=== PATIENT | male | born 1960 | race African-American/Black ===

== ENCOUNTER 2023-03-29 23:44 | Emergency (ER) | payer MEDICAID ==
[~2023-03-29] VITALS: Ht 170.2 cm; Wt 70.0 kg
[~2023-03-29 23:44] MED LIST: ASPI-1160 PO; ATOR20TA65 PO; ATROV PO; AZIT500T8 MT; CARV3.1242 PO; EMPA10TA PO; FAMO20TA8 PO; FURO40TA5 PO; GABA-534 PO; SACU1TAB PO; TIOT4MIS5 IH
[2023-03-29 23:46] VITALS: O2SAT 94
[2023-03-30 00:39] LABS: BASOPHILS % 0.7 % (0.0-2.0); EOSINOPHILS % 4.5 % (0.0-5.0); HEMATOCRIT. 32.8 % (42.0-52.0); HEMOGLOBIN. 10.5 g/dL (14.0-18.0); MEAN CORPUSCULAR HEMOGLOBIN 28.3 pg (28.0-32.0); MEAN CORPUSCULAR VOLUME 88.3 fL (80.0-94.0); MONOCYTES % 13.7 % (2.0-8.0); NEUTROPHILS % 51.1 % (40.0-76.0); PLATELET 137 x1000/uL (130-400); RED BLOOD CELL COUNT 3.72 mill/uL (4.7-6.1); RED CELL DISTRIBUTION WIDTH 20.2 % (11.6-14.6); WHITE BLOOD COUNT 3.8 x1000/uL (4.5-11.0)
[2023-03-30 00:43] LABS: BG BASE EXCESS 1.4 mmol/L (-2.0-2.0); BG CARBOXYHEMOGLOBIN 0.7 % (0.5-1.5); BG DEOXYHEMOGLOBIN 8.3 % (0.0-5.0); BG FRACTION INSPIRED OXYGEN 28; BG HCO3 ACT 24.2 mmol/L (22.0-26.0); BG METHEMOGLOBIN 0.1 % (0.0-1.5); BG OXYGEN SATURATION 91.6 % (92.0-98.5); BG OXYHEMOGLOBIN 90.9 % (94.0-97.0); BG PCO2 32.6 mmHg (35.0-45.0); BG PH 7.489 (7.350-7.450); BG PO2 63.9 mmHg (75.0-100.0); BG SAMPLE SITE RIGHT RADIAL; BG TOTAL HEMOGLOBIN 12.1 g/dL (12.0-18.0); BG VENT MODE NASAL CANNULA
[2023-03-30 00:48] LABS: INR 1.2; PROTHROMBIN TIME 13.2 sec (9.6-11.0)
[2023-03-30 00:59] LABS: ALANINE AMINOTRANSFERASE 17 IU/L (10-49); ALBUMIN 3.8 g/dL (3.2-4.8); ASPARTATE AMINOTRANSFERASE 26 IU/L (<34); BILIRUBIN TOTAL 1.9 mg/dL (0.1-1.0); CALCIUM 8.9 mg/dL (8.7-10.4); CARBON DIOXIDE 29 mEq/L (21-32); CHLORIDE 105 mEq/L (98-107); CREATININE 1.3 mg/dL (0.6-1.3); GLUCOSE 99 mg/dL (70-105); POTASSIUM 3.9 mEq/L (3.5-5.1); PROTEIN TOTAL 7.3 g/dL (6.0-8.3); SODIUM 140 mEq/L (136-145); TROPONIN I HIGH SENSITIVITY 39 ng/L (3.0-53); UREA NITROGEN BLOOD 17 mg/dL (9-23)
[2023-03-30] MEDS ORDERED: FUROSEMIDE 40MG/4ML VIAL IVP ONE (01:45)
[2023-03-30] MEDS ORDERED: FAMOTIDINE 20MG/2ML VIAL IV ONE (02:15)
[2023-03-30] MEDS ORDERED: MAGNESIUM/ALUMINUM HYDROXIDE/SIMETHICONE 30ML UDC PO ONE (06:45)
[2023-03-30 08:03] VITALS: BP 154/96; PULSE 86; RESP 20; TEMP 99
== END 2023-03-30 08:13 | disposition short-term general hospital (02) ==
LOC: ER 23:44
DX: I11.0 Hypertensive heart disease with heart failure (principal); I50.9 Heart failure, unspecified; J44.9 Chronic obstructive pulmonary disease, unspecified; E11.9 Type 2 diabetes mellitus without complications; Z87.891 Personal history of nicotine dependence; Z20.822 Contact with and (suspected) exposure to COVID-19
CPT/HCPCS: 99291; 80053; 83880; 85025; 85610; 84484; 87804 ×2; 36415; 71045; 82805; 82375; 93005; 87426; 36600; J3490; J1940; C9803; Z7610 ×3

== ENCOUNTER 2023-05-21 19:28 | Emergency (ER) | payer MEDICAID ==
[~2023-05-21] VITALS: Ht 172.7 cm; Wt 70.0 kg
[2023-05-21] MEDS ORDERED: IPRATROPIUM BROMIDE (0.02%) 0.5MG/2.5ML NEB HHN STA (19:35)
[2023-05-21] MEDS ORDERED: ALBUTEROL (0.083%) 2.5MG/3ML NEB HHN STA (19:35)
[2023-05-21] MEDS ORDERED: METHYLPREDNISOLONE SOD SUCC 125MG/2ML (ACT-O-VIAL) IV STA (19:35)
[2023-05-21 19:50] VITALS: PULSE 90; RESP 16; O2SAT 95
[2023-05-21 20:17] LABS: BASOPHILS % 0.8 % (0.0-2.0); EOSINOPHILS % 2.8 % (0.0-5.0); HEMATOCRIT. 33.3 % (42.0-52.0); HEMOGLOBIN. 10.4 g/dL (14.0-18.0); LYMPHOCYTES % 17.4 % (20.0-50.0); MEAN CORPUSCULAR HEMOGLOBIN 26.5 pg (28.0-32.0); MEAN CORPUSCULAR HGB CONC 31.2 g/dL (31.0-37.0); MEAN CORPUSCULAR VOLUME 84.9 fL (80.0-94.0); MEAN PLATELET VOLUME 7.8 fl (7.4-10.4); MONOCYTES % 11.9 % (2.0-8.0); NEUTROPHILS % 67.1 % (40.0-76.0); PLATELET 176 x1000/uL (130-400); RED BLOOD CELL COUNT 3.92 mill/uL (4.7-6.1); RED CELL DISTRIBUTION WIDTH 20.2 % (11.6-14.6); WHITE BLOOD COUNT 4.6 x1000/uL (4.5-11.0)
[2023-05-21 20:23] LABS: INR 1.4; PROTHROMBIN TIME 15.1 sec (9.6-11.0)
[2023-05-21 20:26] LABS: ALANINE AMINOTRANSFERASE 12 IU/L (10-49); ALBUMIN 3.6 g/dL (3.2-4.8); ASPARTATE AMINOTRANSFERASE 22 IU/L (<34); BILIRUBIN TOTAL 1.8 mg/dL (0.1-1.0); CALCIUM 8.1 mg/dL (8.7-10.4); CARBON DIOXIDE 24 mEq/L (21-32); CHLORIDE 104 mEq/L (98-107); CREATININE 1.4 mg/dL (0.6-1.3); GLUCOSE 154 mg/dL (70-105); POTASSIUM 3.4 mEq/L (3.5-5.1); PROTEIN TOTAL 7.9 g/dL (6.0-8.3); SODIUM 135 mEq/L (136-145); TROPONIN I HIGH SENSITIVITY 43 ng/L (3.0-53); UREA NITROGEN BLOOD 24 mg/dL (9-23)
[2023-05-22 00:49] VITALS: BP 99/72; PULSE 89; RESP 12
== END 2023-05-22 00:43 | disposition short-term general hospital (02) ==
LOC: ER 19:28
DX: J44.9 Chronic obstructive pulmonary disease, unspecified (principal); I11.0 Hypertensive heart disease with heart failure; I50.9 Heart failure, unspecified; E11.9 Type 2 diabetes mellitus without complications; Z79.899 Other long term (current) drug therapy
CPT/HCPCS: 80053; 83880; 85025; 85610; 84484; 36415; 71045; 93005; 94644; 96374; 99291; J2930; Z7610 ×5

== ENCOUNTER 2023-06-09 23:22 | Emergency (ER) | payer MEDICAID ==
[~2023-06-09] VITALS: Ht 188 cm; Wt 100.0 kg
[2023-06-09 23:24] VITALS: O2SAT 100
[2023-06-09] MEDS ORDERED: IPRATROPIUM BROMIDE (0.02%) 0.5MG/2.5ML NEB HHN STA (23:40)
[2023-06-09] MEDS ORDERED: METHYLPREDNISOLONE SOD SUCC 125MG/2ML (ACT-O-VIAL) IV STA (23:40)
[2023-06-09] MEDS ORDERED: NITROGLYCERIN OINT 1GM/INCH UDPKT TD ONE (23:45)
[2023-06-09] MEDS ORDERED: FUROSEMIDE 40MG/4ML VIAL IV ONE (23:45)
[2023-06-09] MEDS ORDERED: MAGNESIUM 2 G PREMIX 50 ML IV ONE (23:45)
[2023-06-10] MEDS ORDERED: ALBUTEROL (0.083%) 2.5MG/3ML NEB HHN SCH
[2023-06-10 00:33] LABS: BG BASE EXCESS -0.7 mmol/L (-2.0-2.0); BG CARBOXYHEMOGLOBIN 1.8 % (0.5-1.5); BG DEOXYHEMOGLOBIN 0.9 % (0.0-5.0); BG FRACTION INSPIRED OXYGEN 100; BG HCO3 ACT 22.8 mmol/L (22.0-26.0); BG METHEMOGLOBIN 0.4 % (0.0-1.5); BG OXYGEN SATURATION 99.1 % (92.0-98.5); BG OXYHEMOGLOBIN 96.9 % (94.0-97.0); BG PCO2 33.8 mmHg (35.0-45.0); BG PH 7.447 (7.350-7.450); BG PO2 144.8 mmHg (75.0-100.0); BG SAMPLE SITE RIGHT RADIAL; BG TOTAL HEMOGLOBIN 11.4 g/dL (12.0-18.0); BG VENT MODE MASK - NRB
[2023-06-10 02:40] LABS: BASOPHILS % 0.4 % (0.0-2.0); EOSINOPHILS % 3.3 % (0.0-5.0); HEMATOCRIT. 34.8 % (42.0-52.0); LYMPHOCYTES % 20.8 % (20.0-50.0); MEAN CORPUSCULAR HEMOGLOBIN 26.1 pg (28.0-32.0); MEAN CORPUSCULAR HGB CONC 31.8 g/dL (31.0-37.0); MEAN CORPUSCULAR VOLUME 82.2 fL (80.0-94.0); MEAN PLATELET VOLUME 8.1 fl (7.4-10.4); NEUTROPHILS % 61.5 % (40.0-76.0); PLATELET 168 x1000/uL (130-400); RED BLOOD CELL COUNT 4.23 mill/uL (4.7-6.1); RED CELL DISTRIBUTION WIDTH 20.8 % (11.6-14.6); WHITE BLOOD COUNT 4.2 x1000/uL (4.5-11.0)
[2023-06-10 02:49] LABS: ALANINE AMINOTRANSFERASE 9 IU/L (10-49); ALBUMIN 3.8 g/dL (3.2-4.8); ASPARTATE AMINOTRANSFERASE 17 IU/L (<34); BILIRUBIN TOTAL 1.5 mg/dL (0.1-1.0); CALCIUM 8.3 mg/dL (8.7-10.4); CARBON DIOXIDE 27 mEq/L (21-32); CHLORIDE 110 mEq/L (98-107); CREATININE 1.3 mg/dL (0.6-1.3); GLUCOSE 92 mg/dL (70-105); POTASSIUM 3.7 mEq/L (3.5-5.1); PROTEIN TOTAL 7.3 g/dL (6.0-8.3); SODIUM 145 mEq/L (136-145); TROPONIN I HIGH SENSITIVITY 48 ng/L (3.0-53); UREA NITROGEN BLOOD 25 mg/dL (9-23)
[2023-06-10] MEDS: CEFTRIAXONE 1GM PREMIX 50 ML IV ONE (03:00)
[2023-06-10] MEDS: FUROSEMIDE 40MG/4ML VIAL IV NR (04:30)
[2023-06-10] MEDS: MAGNESIUM 2 G PREMIX 50 ML IV NR (04:45)
[2023-06-10] MEDS: NITROGLYCERIN OINT 1GM/INCH UDPKT TD NR (05:00)
[2023-06-10] MEDS: METHYLPREDNISOLONE SOD SUCC 125MG/2ML (ACT-O-VIAL) IV NR (05:00)
[2023-06-10 05:16] LABS: TROPONIN I HIGH SENSITIVITY 41 ng/L (3.0-53)
[2023-06-10] MEDS: AZITHROMYCIN 500MG/250ML 250 ML IV ONE (05:40)
[2023-06-10] MEDS ORDERED: ACETAMINOPHEN 325MG TABLET PO ONE (06:45)
[2023-06-10 09:58] VITALS: BP 128/65; PULSE 79; RESP 15; TEMP 98.2
== END 2023-06-10 10:03 | disposition short-term general hospital (02) ==
LOC: ER 23:22
DX: J44.9 Chronic obstructive pulmonary disease, unspecified (principal); J18.8 Other pneumonia, unspecified organism; I50.9 Heart failure, unspecified; I11.0 Hypertensive heart disease with heart failure; E11.9 Type 2 diabetes mellitus without complications; F19.90 Other psychoactive substance use, unspecified, uncomplicated
CPT/HCPCS: 36415 ×2; 71045; 99284; 80053; 83880; 83605; 85025; 87040; 84484; 82805; 82375; 96367; 96365; 96375; 36600; J0456; J0696; J1940; J3475; J2930; Z7610

== ENCOUNTER 2025-04-02 00:06 | Inpatient (IN) | payer MEDICAID ==
[~2025-04-02] VITALS: Ht 182.9 cm; Wt 121.1 kg
[2025-04-02] VITALS (7 sets, daily range): BP systolic 109–116; BP diastolic 66–74; PULSE 78–89; RESP 17–20; TEMP 36–36.4; O2SAT 90–96
[2025-04-02 01:23] LABS: CREATININE 1.6 mg/dL (0.6-1.3); UREA NITROGEN BLOOD 22 mg/dL (9-23)
[2025-04-02 01:24] LABS: ASPARTATE AMINOTRANSFERASE 19 IU/L (<34)
[2025-04-02 01:25] LABS: BILIRUBIN DIRECT 0.7 mg/dL (<=3.0); BILIRUBIN TOTAL 1.4 mg/dL (0.1-1.0); PROTEIN TOTAL 6.8 g/dL (6.0-8.3)
[2025-04-02] MEDS: ALBUTEROL (0.083%) 2.5MG/3ML NEB HHN SCH (01:53)
[2025-04-02] MEDS: METHYLPREDNISOLONE SOD SUCC 125MG/2ML (ACT-O-VIAL) IV ONE (02:04)
[2025-04-02] MEDS: AZITHROMYCIN 500MG/250ML 250 ML IV ONE (02:04)
[2025-04-02 02:12] LABS: BG BASE EXCESS -1.9 mmol/L (-2.0-3.0); BG CARBOXYHEMOGLOBIN 5.9 % (0.5-1.5); BG DEOXYHEMOGLOBIN 10.3 % (0.0-5.0); BG FLOW(L/min) 2.00 L/min; BG FRACTION INSPIRED OXYGEN 28; BG HCO3 ACT 23.1 mmol/L (21.0-28.0); BG METHEMOGLOBIN 0.1 % (0.5-1.5); BG OXYGEN SATURATION 89.0 % (94.0-98.0); BG OXYHEMOGLOBIN 83.7 % (94.0-98.0); BG PCO2 40.2 mmHg (35.0-48.0); BG PH 7.377 (7.350-7.450); BG PO2 56.4 mmHg (83.0-108.0); BG SAMPLE SITE RIGHT RADIAL; BG TOTAL HEMOGLOBIN 15.6 g/dL (13.5-17.5); BG VENT MODE NASAL CANNULA
[2025-04-02 02:20] LABS: BASOPHILS % 0.2 % (0.0-2.0); EOSINOPHILS % 1.9 % (0.0-5.0); HEMATOCRIT. 46.3 % (42.0-52.0); HEMOGLOBIN. 14.5 g/dL (14.0-18.0); LYMPHOCYTES % 18.4 % (20.0-50.0); MEAN PLATELET VOLUME 8.7 fl (7.4-10.4); MONOCYTES % 12.8 % (2.0-8.0); NEUTROPHILS % 66.7 % (40.0-76.0); PLATELET 144 x1000/uL (130-400); RED BLOOD CELL COUNT 4.91 mill/uL (4.7-6.1); RED CELL DISTRIBUTION WIDTH 16.7 % (11.6-14.6); TROPONIN I HIGH SENSITIVITY 85 ng/L (3.0-53)
[2025-04-02] MEDS: FUROSEMIDE 40MG/4ML VIAL IVP ONE (04:41)
[2025-04-02] MEDS ORDERED: GUAIFENESIN 200MG/10ML SUGAR FREE UDC PO PRN (07:45)
[2025-04-02] MEDS ORDERED: CLONIDINE 0.1MG TABLET PO PRN (07:45)
[2025-04-02] MEDS ORDERED: DOCUSATE SODIUM 100MG CAPSULE PO PRN (07:45)
[2025-04-02] MEDS ORDERED: ONDANSETRON HCL 4MG/2ML INJ IV PRN (07:45)
[2025-04-02] MEDS ORDERED: MAGNESIUM/ALUMINUM HYDROXIDE/SIMETHICONE 30ML UDC PO PRN (07:45)
[2025-04-02] MEDS ORDERED: ACETAMINOPHEN 325MG TABLET PO PRN (07:45)
[2025-04-02] MEDS ORDERED: IPRATROPIUM/ALBUTEROL 0.5-3(2.5)MG/3ML NEB HHN PRN (07:45)
[2025-04-02 08:30] LABS: CLARITY URINE CLEAR (CLEAR); COLOR URINE YELLOW (YELLOW); GLUCOSE URINE NEGATIVE (NEGATIVE); KETONES URINE NEGATIVE (NEGATIVE); LEUKOCYTE ESTERASE URINE 1+ (NEGATIVE); NITRITE URINE NEGATIVE (NEGATIVE); OCCULT BLOOD URINE TRACE (NEGATIVE); PH URINE 5.5 (4.5-8.0); PROTEIN URINE 2+ (NEGATIVE); SPECIFIC GRAVITY URINE 1.013 (1.005-1.030); UROBILINOGEN URINE 1.0 E.U./dL (0.2-1.0)
[2025-04-02 08:50] LABS: *AMPHETAMINES SCREEN URINE NEGATIVE (NEGATIVE); *BARBITURATES SCREEN URINE NEGATIVE (NEGATIVE); *BENZODIAZEPINES SCREEN URINE NEGATIVE (NEGATIVE); *COCAINE SCREEN URINE PRESUMPTIVE POSITIVE (NEGATIVE); CANNABINOID URINE SCREEN NEGATIVE (NEGATIVE); ECSTASY MDMA SCREEN URINE NEGATIVE (NEGATIVE); METHADONE URINE SCREEN NEGATIVE (NEGATIVE); OPIATES URINE SCREEN NEGATIVE (NEGATIVE); PHENCYCLIDINE URINE SCREEN PRESUMTIVE POSITIVE (NEGATIVE)
[2025-04-02 08:58] LABS: SQUAMOUS EPITHELIAL CELL URINE 1+ /lpf (RARE/1+)
[2025-04-02 09:00] LABS: RBC URINE 0-2 /hpf (0-2)
[2025-04-02 09:01] LABS: BACTERIA URINE TRACE; MUCUS URINE TRACE /lpf (NONE/TRACE); YEAST URINE NONE SEEN
[2025-04-02] MEDS: PANTOPRAZOLE SODIUM 40 MG/VIAL IV SCH (09:18)
[2025-04-02] MEDS: ASPIRIN 81MG TABLET PO SCH (09:18)
[2025-04-02] MEDS: AMLODIPINE 2.5MG TABLET PO SCH ×2 (10:24→21:10)
[2025-04-02] MEDS: ENOXAPARIN 40MG/0.4ML SYR SUBCUT SCH (10:24)
[2025-04-02] MEDS: EMPAGLIFLOZIN 10MG TABLET PO SCH (10:24)
[2025-04-02] MEDS: SACUBITRIL/VALSARTAN 24MG/26MG TABLET PO SCH (10:24)
[2025-04-02 13:08] LABS: SODIUM URINE RANDOM 44.0 mEq/L
[2025-04-02 13:15] LABS: CREATININE URINE RANDOM 93.8 mg/dL
[2025-04-02] MEDS ORDERED: DEXTROSE 50% WATER 50ML SYRINGE IV PRN (14:30)
[2025-04-02] MEDS: BLOOD SUGAR DIAGNOSTIC STRIP TEST SCH (17:49)
[2025-04-02] MEDS: INSULIN LISPRO 100 UNITS/ML SUBCUT SCH (17:56)
[2025-04-02] MEDS: FUROSEMIDE 40MG/4ML VIAL IV SCH (17:56)
[2025-04-02] MEDS: INFLUENZA VACCINE 05/PF 0.5 ML SYRINGE IM ONE (17:58)
[2025-04-02] MEDS: PNEUMOCOCCAL 20-VAL CONJ-DIP CRM 0.5ML IM ONE (18:00)
[2025-04-02 18:21] LABS: TROPONIN I HIGH SENSITIVITY 49 ng/L (3.0-53)
[2025-04-02] MEDS: ACETAMINOPHEN 325MG TABLET PO PRN (21:27)
[2025-04-02] MEDS: ATORVASTATIN CALCIUM 20MG TABLET PO SCH (21:28)
[2025-04-03] VITALS (8 sets, daily range): BP systolic 109–148; BP diastolic 56–91; PULSE 78–89; RESP 14–22; TEMP 36.3–36.7; O2SAT 94–98
[2025-04-03 05:23] LABS: CLARITY URINE CLEAR (CLEAR); COLOR URINE YELLOW (YELLOW); GLUCOSE URINE 3+ (NEGATIVE); KETONES URINE NEGATIVE (NEGATIVE); LEUKOCYTE ESTERASE URINE NEGATIVE (NEGATIVE); NITRITE URINE NEGATIVE (NEGATIVE); OCCULT BLOOD URINE NEGATIVE (NEGATIVE); PH URINE 5.5 (4.5-8.0); PROTEIN URINE 1+ (NEGATIVE); SPECIFIC GRAVITY URINE 1.023 (1.005-1.030); UROBILINOGEN URINE 1.0 E.U./dL (0.2-1.0)
[2025-04-03 07:04] LABS: RBC URINE NONE SEEN /hpf (0-2); WBC URINE 0-2 /hpf (0-2)
[2025-04-03 07:05] LABS: BACTERIA URINE NONE SEEN
[2025-04-03 07:06] LABS: SQUAMOUS EPITHELIAL CELL URINE FEW /lpf (RARE/1+)
[2025-04-03 09:16] LABS: CREATININE 1.4 mg/dL (0.6-1.3)
[2025-04-03 09:17] LABS: LDL CHOLESTEROL 63 mg/dL (5-100); TRIGLYCERIDE 62 mg/dL (0-150); UREA NITROGEN BLOOD 25 mg/dL (9-23)
[2025-04-03 09:18] LABS: BASOPHILS % 0.3 % (0.0-2.0); EOSINOPHILS % 0.2 % (0.0-5.0); HEMATOCRIT. 45.1 % (42.0-52.0); HEMOGLOBIN. 14.5 g/dL (14.0-18.0); LYMPHOCYTES % 9.9 % (20.0-50.0); MEAN PLATELET VOLUME 8.5 fl (7.4-10.4); MONOCYTES % 9.9 % (2.0-8.0); NEUTROPHILS % 79.7 % (40.0-76.0); PLATELET 161 x1000/uL (130-400); RED BLOOD CELL COUNT 4.79 mill/uL (4.7-6.1); RED CELL DISTRIBUTION WIDTH 16.5 % (11.6-14.6)
[2025-04-03 09:41] LABS: T4 FREE 1.14 ng/dL (0.89-1.76)
[2025-04-03] MEDS: IPRATROPIUM/ALBUTEROL 0.5-3(2.5)MG/3ML NEB HHN SCH (13:40)
[2025-04-03] MEDS: FUROSEMIDE 40MG/4ML VIAL IV SCH (17:54)
[2025-04-03] MEDS: METHYLPREDNISOLONE SOD SUCC 40MG/ML (ACT-O-VIAL) IV SCH (17:57)
[2025-04-03] MEDS: AZITHROMYCIN 500MG/250ML 250 ML IV SCH (22:21)
[2025-04-04] VITALS: BP 133/74; PULSE 84; RESP 20; TEMP 36.7; O2SAT 97
[2025-04-04 04:00] VITALS: BP 140/86; PULSE 78; RESP 20; TEMP 36.4; O2SAT 96
[2025-04-04 08:00] VITALS: BP 112/73; PULSE 88; RESP 18; TEMP 36.5; O2SAT 94
[2025-04-04 08:13] LABS: BASOPHILS % 0.2 % (0.0-2.0); EOSINOPHILS % 0.1 % (0.0-5.0); HEMATOCRIT. 51.5 % (42.0-52.0); HEMOGLOBIN. 15.9 g/dL (14.0-18.0); LYMPHOCYTES % 8.8 % (20.0-50.0); MEAN PLATELET VOLUME 8.2 fl (7.4-10.4); MONOCYTES % 5.4 % (2.0-8.0); NEUTROPHILS % 85.5 % (40.0-76.0); PLATELET 190 x1000/uL (130-400); RED BLOOD CELL COUNT 5.40 mill/uL (4.7-6.1); RED CELL DISTRIBUTION WIDTH 16.8 % (11.6-14.6)
[2025-04-04 08:31] LABS: CREATININE 1.3 mg/dL (0.6-1.3); UREA NITROGEN BLOOD 21 mg/dL (9-23)
[2025-04-04 08:41] LABS: TROPONIN I HIGH SENSITIVITY 58 ng/L (3.0-53)
[2025-04-04 12:00] VITALS: BP 160/82; PULSE 85; RESP 20; TEMP 36.2; O2SAT 98
[2025-04-04] MEDS ORDERED: AZIT500T8 MT (14:50)
[2025-04-04] MEDS ORDERED: TIOT4MIS5 IH (14:50)
[2025-04-04 16:00] VITALS: BP 120/71; PULSE 84; RESP 18; TEMP 36.2; O2SAT 94
[2025-04-04 16:40] VITALS: BP 120/71; PULSE 84; RESP 18; TEMP 97.2
== END 2025-04-04 18:51 | disposition home or self-care (01) | DRG 133 ==
LOC: ER 01:06 → 7WST 03:42 → EDBEDREQTM 03:46 → EDBEDREQ 03:46
PROVIDERS: ADMIT Hospitalist; ATTEND Hospitalist
DX: J96.21 Acute and chronic respiratory failure with hypoxia (principal); I50.43 Acute on chronic combined systolic (congestive) and diastolic (congestive) heart failure; I21.A1 Myocardial infarction type 2; I42.0 Dilated cardiomyopathy; N17.9 Acute kidney failure, unspecified; I11.0 Hypertensive heart disease with heart failure; J44.1 Chronic obstructive pulmonary disease with (acute) exacerbation; F19.10 Other psychoactive substance abuse, uncomplicated; E66.811 Obesity, class 1; E11.9 Type 2 diabetes mellitus without complications; I42.8 Other cardiomyopathies; J45.901 Unspecified asthma with (acute) exacerbation; Z99.81 Dependence on supplemental oxygen; G47.33 Obstructive sleep apnea (adult) (pediatric); Z68.34 Body mass index [BMI] 34.0-34.9, adult; Z79.899 Other long term (current) drug therapy; Z86.73 Personal history of transient ischemic attack (TIA), and cerebral infarction without residual deficits; Z79.82 Long term (current) use of aspirin
CPT/HCPCS: 36415; 36600; 71045; 80048; 80061; 80076; 80305; 81003; 82375; 82570; 82805; 82962; 83036; 83605; 83735; 83880; 84145; 84300; 84439; 84443; 84484; 84540; 85025; 87070; 90686; 90732; 93005; 93306; 94070; 94640; 96365; 96375; 99285; A4606; J0456; J1650; J1815; J1938; J2470; J2919